=== PATIENT | female | born 1950 | race Caucasian/White ===

== ENCOUNTER 2021-07-20 04:40 | Inpatient (IN) | payer MEDICARE, OTHER ==
[~2021-07-20] VITALS: Ht 170.2 cm; Wt 54.4 kg
[2021-07-20] MEDS ORDERED: MORPHINE SULFATE 4 MG/ML CPJ (NOT FOR IM USE) IV STA (04:46)
[2021-07-20] MEDS ORDERED: FAMOTIDINE 20MG/2ML VIAL IV STA (04:46)
[2021-07-20] MEDS ORDERED: SODIUM CHLORIDE 0.9% 500 ML IV ONE (05:00)
[2021-07-20 05:28] LABS: CHLORIDE 87 mEq/L (98-107)
[2021-07-20 05:40] LABS: BASOPHILS % 0.3 % (0.0-2.0); EOSINOPHILS % 0.3 % (0.0-5.0); HEMATOCRIT. 37.9 % (36.0-48.0); HEMOGLOBIN. 12.8 g/dL (12.0-16.0); LYMPHOCYTES % 16.5 % (20.0-50.0); MEAN CORPUSCULAR HEMOGLOBIN 28.6 pg (28.0-32.0); MEAN CORPUSCULAR VOLUME 84.7 fL (81.0-99.0); MEAN PLATELET VOLUME 8.5 fl (7.4-10.4); MONOCYTES % 3.5 % (2.0-8.0); NEUTROPHILS % 79.4 % (40.0-76.0); PLATELET 238 x1000/uL (130-400); RED BLOOD CELL COUNT 4.47 mill/uL (4.2-5.4); RED CELL DISTRIBUTION WIDTH 13.1 % (11.6-14.6)
[2021-07-20 05:45] LABS: CLARITY URINE CLEAR (CLEAR); COLOR URINE YELLOW (YELLOW); PH URINE 8.5 (4.5-8.0); SPECIFIC GRAVITY URINE 1.014 (1.005-1.030)
[2021-07-20] MEDS ORDERED: SODIUM CHLORIDE 0.9% 1,000 ML IV ONE (05:45)
[2021-07-20 05:47] LABS: KETONES URINE NEGATIVE (NEGATIVE); PROTEIN URINE TRACE (NEGATIVE)
[2021-07-20 05:48] LABS: LEUKOCYTE ESTERASE URINE TRACE (NEGATIVE); NITRITE URINE NEGATIVE (NEGATIVE); OCCULT BLOOD URINE NEGATIVE (NEGATIVE); UROBILINOGEN URINE 0.2 E.U./dL (0.2-1.0)
[2021-07-20] MEDS ORDERED: CLONIDINE 0.1MG TABLET PO PRN (07:30)
[2021-07-20] MEDS ORDERED: KETOROLAC 15MG/ML VIAL IV PRN (07:30)
[2021-07-20] MEDS ORDERED: DOCUSATE SODIUM 100MG CAPSULE PO PRN (07:30)
[2021-07-20] MEDS: SODIUM CHLORIDE 0.9% 1,000 ML IV SCH ×2 (07:30→16:34)
[2021-07-20] MEDS ORDERED: GUAIFENESIN 200MG/10ML SUGAR FREE UDC PO PRN (07:30)
[2021-07-20] MEDS ORDERED: NITROGLYCERIN 0.4MG TABLET SL SL PRN (07:30)
[2021-07-20] MEDS ORDERED: IPRATROPIUM/ALBUTEROL 0.5-3(2.5)MG/3ML NEB NEB PRN (07:30)
[2021-07-20] MEDS ORDERED: ACETAMINOPHEN 325MG TABLET PO PRN (07:30)
[2021-07-20] MEDS ORDERED: MAGNESIUM/ALUMINUM HYDROXIDE/SIMETHICONE 30ML UDC PO PRN (07:30)
[2021-07-20] MEDS: FAMOTIDINE 20MG TABLET PO SCH (09:00)
[2021-07-20] MEDS: ENOXAPARIN 40MG/0.4ML SYR SUBCUT SCH (09:00)
[2021-07-20 09:05] LABS: FOLIC ACID (FOLATE) SERUM 17.2 ng/mL (>5.38)
[2021-07-20 12:00] VITALS: BP 148/61
[2021-07-20] MEDS ORDERED: SIMV10TA97 MT (12:28)
[2021-07-20] MEDS ORDERED: ESLI800T PO (12:28)
[2021-07-20] MEDS ORDERED: GABA800T97 PO (12:28)
[2021-07-20] MEDS: ONDANSETRON HCL 4MG/2ML INJ IV PRN ×2 (12:45→17:44)
[2021-07-20 15:34] VITALS: BP 148/61
[2021-07-20 16:07] LABS: CREATINE KINASE 149 IU/L (26-192)
[2021-07-20 16:08] LABS: CREATINE KINASE MB FRACTION 2.6 ng/mL (0.5-3.6)
[2021-07-20 16:29] VITALS: BP 152/64
[2021-07-20 20:00] VITALS: BP 120/89
[2021-07-20] MEDS ORDERED: ZOLPIDEM TARTRATE 5MG TABLET PO PRN (21:00)
[2021-07-20] MEDS: GABAPENTIN 300MG CAPSULE PO SCH (21:12)
[2021-07-20] MEDS: ACETAMINOPHEN 325MG TABLET PO PRN (21:12)
[2021-07-21] VITALS (7 sets, daily range): BP systolic 122–181; BP diastolic 54–78
[2021-07-21] MEDS: SODIUM CHLORIDE 0.9% 1,000 ML IV SCH ×3 (04:53→23:05)
[2021-07-21] MEDS: GABAPENTIN 300MG CAPSULE PO SCH ×3 (04:53→20:39)
[2021-07-21 08:23] LABS: BASOPHILS % 0.5 % (0.0-2.0); HEMATOCRIT. 35.3 % (36.0-48.0); HEMOGLOBIN. 12.1 g/dL (12.0-16.0); LYMPHOCYTES % 37.5 % (20.0-50.0); MEAN CORPUSCULAR VOLUME 84.7 fL (81.0-99.0); MEAN PLATELET VOLUME 8.1 fl (7.4-10.4); MONOCYTES % 9.9 % (2.0-8.0); NEUTROPHILS % 51.1 % (40.0-76.0); PLATELET 235 x1000/uL (130-400); RED BLOOD CELL COUNT 4.17 mill/uL (4.2-5.4); RED CELL DISTRIBUTION WIDTH 13.6 % (11.6-14.6)
[2021-07-21] MEDS: ENOXAPARIN 40MG/0.4ML SYR SUBCUT SCH ×3 (09:00→09:55)
[2021-07-21] MEDS: FAMOTIDINE 20MG TABLET PO SCH (09:49)
[2021-07-21 10:18] LABS: CHLORIDE 104 mEq/L (98-107)
[2021-07-21 10:35] LABS: PHOSPHORUS 3.2 mg/dL (2.5-4.9)
[2021-07-21 10:36] LABS: CREATINE KINASE 170 IU/L (26-192)
[2021-07-21 10:40] LABS: CREATINE KINASE MB FRACTION 3.9 ng/mL (0.5-3.6)
[2021-07-21] MEDS: ACETAMINOPHEN 325MG TABLET PO PRN (20:42)
[2021-07-22 04:06] VITALS: BP 153/67
[2021-07-22] MEDS: GABAPENTIN 300MG CAPSULE PO SCH (06:02)
[2021-07-22 08:00] VITALS: BP 150/62
[2021-07-22] MEDS: FAMOTIDINE 20MG TABLET PO SCH (08:38)
[2021-07-22 10:05] VITALS: BP 148/60
[2021-07-22 10:31] LABS: CHLORIDE 106 mEq/L (98-107)
== END 2021-07-22 11:30 | disposition home or self-care (01) | DRG 641 ==
LOC: EDUNIT# 04:40 → ER 04:40 → 6WST 06:27 → SUPCPDRO 07:18 → EDBEDREQ 08:50 → ENRESERV 08:54
PROVIDERS: ADMIT Internal Medicine; ATTEND Internal Medicine
DX: E87.1 Hypo-osmolality and hyponatremia (principal); R11.2 Nausea with vomiting, unspecified; T45.0X5A Adverse effect of antiallergic and antiemetic drugs, initial encounter; G50.0 Trigeminal neuralgia; Z20.822 Contact with and (suspected) exposure to COVID-19; Y92.89 Other specified places as the place of occurrence of the external cause
CPT/HCPCS: 36415; 80048; 80053; 80061; 80320; 81003; 82550; 82553; 82607; 82746; 83036; 83540; 83550; 83735; 83930; 84100; 84145; 84443; 84484; 85025; 87426; 93005; 93306; 93970; 99285; J1650; J2405; J7030; G0480

== ENCOUNTER → 2021-07-20 | Emergency (ER) | payer MEDICARE ==
[~2021-07-20] MED LIST: ESLI800T PO; GABA800T97 PO; SIMV10TA97 MT
== END | disposition left against medical advice (07) ==
LOC: ER 02:50
DX: Z53.21 Procedure and treatment not carried out due to patient leaving prior to being seen by health care provider (principal)